=== PATIENT | male | born 1935 | race Hispanic/Latino ===

== ENCOUNTER 2020-08-07 12:53 | Emergency (ER) | payer MEDICARE ==
[~2020-08-07] VITALS: Ht 170.2 cm; Wt 71.2 kg
[2020-08-07] MEDS ORDERED: AMLODIPINE BESY10 MG PO (13:04)
[2020-08-07] MEDS ORDERED: GLIPIZIDE ER5 MG PO (13:04)
[2020-08-07] MEDS ORDERED: ASPIRIN81 MG PO (13:04)
[2020-08-07] MEDS ORDERED: CLONIDINE HCL0.3 MG PO (13:04)
[2020-08-07] MEDS ORDERED: ATORVASTATIN CA20 MG PO (13:04)
[2020-08-07] MEDS ORDERED: VASOTEC10 M1 PO (13:04)
[2020-08-07] MEDS ORDERED: METOPROLOL TAR100 MG PO (13:04)
[2020-08-07 13:34] VITALS: BP 156/65
== END 2020-08-07 13:45 | disposition home or self-care (01) ==
LOC: EDBD 12:53 → ER 13:23
DX: I10 Essential (primary) hypertension (principal); E11.9 Type 2 diabetes mellitus without complications; E78.5 Hyperlipidemia, unspecified; I48.91 Unspecified atrial fibrillation; E78.00 Pure hypercholesterolemia, unspecified
CPT/HCPCS: 93005; 99283